=== PATIENT | male | born 1950 | race Caucasian/White ===

== ENCOUNTER 2017-05-21 10:22 | Emergency (ER) | payer OTHER ==
[2017-05-21 10:31] VITALS: BP 142/94; PULSE 71; TEMP 97.8; BMI 27.9
--- NOTE | 2017-05-21 11:01 | PDOC ---
History of Present Illness - General Chief Complaint: Pain Stated Complaint: HERNIA/ BURNING SENSATION Time Seen by Provider: 05/21/17 10:41 History Source: Patient Exam Limitations: No Limitations - History of Present Illness Initial Comments: 05/21/17 10:55 Patient is a 6-year-old male history of hypertension and right inguinal hernia presents for evaluation had "burning to right inguinal area this morning" denies any urinary symptoms, reports that he does have an inguinal hernia that was diagnosed has not had it repaired had burning sensation which has now resolved denies any pain to area. Came in requesting referral. Denies any scrotal pain. Past Medical History: Hypertension Allergies: No known allergies Medications: Hydrochlorothiazide Family History: Non-contributory Social History: Denies smoking, alcohol use, or IVDU Review of Systems GENERAL/CONSTITUTIONAL: [No fever or chills. No weakness. No weight change.] HEAD, EYES, EARS, NOSE AND THROAT: [No change in vision. No ear pain or discharge. No sore throat. ] CARDIOVASCULAR: [No chest pain or shortness of breath.] RESPIRATORY: [No cough, wheezing, or hemoptysis.] GASTROINTESTINAL: [No nausea, vomiting, diarrhea or constipation. No rectal bleeding.] GENITOURINARY: [No dysuria, frequency, or change in urination. Right inguinal burning] MUSCULOSKELETAL: [No joint or muscle swelling or pain. No neck or back pain.] SKIN AND BREASTS: [No rash or easy bruising.] Physical Exam: GENERAL: [The patient is awake, alert, and fully oriented, in no acute distress. ] HEAD: [Normal with no signs of trauma.] EYES: [Pupils equal, round and reactive to light, extraocular movements intact, sclera anicteric, conjunctiva clear.] ENT: [Ears normal, nares patent, oropharynx clear without exudates. Moist mucous membranes. No uvula deviation] NECK: [Normal range of motion, supple without lymphadenopathy, JVD, or masses.] LUNGS: [Breath sounds equal, clear to auscultation bilaterally. No wheezes, and no crackles.] HEART: [Regular rate and rhythm, normal S1 and S2 without murmur, rub or gallop. ] ABDOMEN: [Soft, nontender, normoactive bowel sounds. No guarding, no rebound. No masses. No bruising or abrasions. ] MUSCULOSKELETAL: [Normal range of motion, no edema. No clubbing or cyanosis. No cords, erythema, or tenderness. No CVA Tenderness with fist palpation , no inguinal bulge on examination; no Pain reproduced with hip adduction against resistance.] NEUROLOGICAL: [Cranial nerves II through XII grossly intact. Normal speech, normal gait.] SKIN: [Warm, Dry, normal turgor, no rashes or lesions noted.] 05/21/17 11:01 Past History - Past Medical History Allergies/Adverse Reactions: Allergies Allergy/AdvReac Type Severity Reaction Status Date / Time shellfish derived Allergy Severe Swelling Verified 05/21/17 10:28 Home Medications: Ambulatory Orders NK [No Known Home Medication] 05/21/17 Asthma: Yes COPD: No HTN: Yes - Immunization History Immunization Up to Date: Yes - Suicide/Smoking/Psychosocial Hx Smoking History: Never smoked *Physical Exam - Vital Signs Last Vital Signs Temp Pulse Resp BP Pulse Ox 97.8 F 71 20 142/94 98 05/21/17 10:28 05/21/17 10:28 05/21/17 10:28 05/21/17 10:28 05/21/17 10:28 Medical Decision Making - Medical Decision Making 05/21/17 10:59 A/P: Patient had burning sensation to right inguinal area, no inguinal bulge on examination; no Pain reproduced with hip adduction against resistance. Without obstruction or gangrene. Patient will follow-up as an outpatient with his PMD for referral to surgery. 05/21/17 11:04 *DC/Admit/Observation/Transfer Diagnosis at time of Disposition: Inguinal hernia Qualifiers: Obstruction and gangrene presence: without obstruction or gangrene Laterality: unilateral Recurrence: recurrent Qualified Code(s): K40.91 - Unilateral inguinal hernia, without obstruction or gangrene, recurrent - Discharge Dispostion Disposition: HOME Condition at time of disposition: Stable Admit: No - Referrals Referrals: Sam Grant [Primary Care Provider] - Mohinder Paniagua MD [Staff Physician] - - Patient Instructions Additional Instructions: Recommend follow-up with surgery any increased pain, redness, swelling, unable to reduce area return immediately to ER. Recommend following up as outpatient for repair - Post Discharge Activity Forms/Work/School Notes: Back to Work
== END 2017-05-21 11:11 | disposition home or self-care (01) ==
LOC: JERFT 10:22
DX: K40.91 Unilateral inguinal hernia, without obstruction or gangrene, recurrent (principal); I10 Essential (primary) hypertension; J45.909 Unspecified asthma, uncomplicated
CPT/HCPCS: 99281-25